=== PATIENT | female | born 1975 | race American Indian/Alaskan Native ===

== ENCOUNTER 2016-11-10 16:30 | Emergency (ER) | payer SELFPAY ==
[2016-11-10 17:29] LABS: Hematocrit 27.3 % (30.3-42.9); Hemoglobin 9.3 gm/dl (10.1-14.3); Mean Corpuscular HGB Conc 34 % (30-34); Mean Corpuscular Hemoglobin 35 pg (28-32); Mean Corpuscular Volume 103 fl (79-97); Platelet Count 327 K/mm3 (140-440); Red Blood Count 2.64 M/mm3 (3.65-5.03); Red Cell Distribution Width 12.3 % (13.2-15.2); White Blood Count 8.6 K/mm3 (4.5-11.0)
--- NOTE | 2016-11-10 17:33 | Cat Scan Report ---
FINAL REPORT PROCEDURE: CT HEAD/BRAIN WO CON TECHNIQUE: Computerized tomography of the head was performed without contrast material. HISTORY: headache COMPARISON: No prior studies are available for comparison. FINDINGS: No CT evidence of intracranial mass, hemorrhage, acute territorial infarction, or hydrocephalus. The intracranial arteries are symmetric in density. Calvarium is intact. The visualized paranasal sinuses and mastoids are aerated. IMPRESSION: No CT evidence of acute abnormality
[2016-11-10 17:40] LABS: Anion Gap 18 mmol/L; BUN/Creatinine Ratio 13.75; Blood Urea Nitrogen 11 mg/dL (7-17); Calcium 8.6 mg/dL (8.4-10.2); Carbon Dioxide 22 mmol/L (22-30); Chloride 106.6 mmol/L (98-107); Glucose 102 mg/dL (65-100); Potassium 3.5 mmol/L (3.6-5.0); Sodium 143 mmol/L (137-145)
[2016-11-10] MEDS ORDERED: TYLENOL PO ONE (21:13)
[2016-11-11] MEDS ORDERED: TORADOL IV ONE (01:39)
[2016-11-11] MEDS ORDERED: DILAUDID IV ONE ×3 (01:39→03:25)
[2016-11-11] MEDS ORDERED: ZOFRAN IV ONE (01:39)
[2016-11-11] MEDS ORDERED: ATIVAN ONE (02:46)
[2016-11-11] MEDS ORDERED: ATIVAN IV ONE (02:46)
[2016-11-11] MEDS ORDERED: XYLOCAINE 2% INFILTRATI ONE ×2 (03:03)
--- NOTE | 2016-11-11 03:52 | Emergency Department Report ---
ED Headache HPI - General Chief Complaint: Headache Stated Complaint: SEVERE MIGRAINE Time Seen by Provider: 11/11/16 00:56 Source: patient Exam Limitations: no limitations - History of Present Illness Initial Comments: 41-year-old female with a past medical history of previous TIA a presents to the hospital complaining of headache the past 3 days. Headache came on all of a sudden 8/10 in intensity. It improved temporarily with Tylenol No. 3 then pain comes back. Headache is now constant. Pain described as throbbing, posterior, and neck pain radiating down to mid thoracic spine. Pain worse with movement and palpation. No alleviating factors. Patient also complains of pressure behind her eyes. She denies nausea, vomiting, focal weakness, or numbness. History TIA in the past with right-sided weakness with full recovery. Patient had a spontaneous miscarriage on the at approximately 7- 8 weeks gestation. Denies previous hx of headaches. Allergies/Adverse Reactions: Allergies No Known Allergies Allergy (Unverified 11/10/16 17:04) Home Medications: Ambulatory Orders Ibuprofen [Motrin] 800 mg PO Q8HR PRN #30 tablet 11/11/16 Ondansetron [Zofran Odt] 4 mg PO Q8HR PRN #20 tab.rapdis 11/11/16 Oxycodone HCl/Acetaminophen [Percocet 7.5/325 mg] 1 each PO Q6HR PRN #20 tablet 11/11/16 ED Review of Systems ROS: Stated complaint: SEVERE MIGRAINE Other details as noted in HPI Comment: All other systems reviewed and negative Other: Constitutional: No fevers chills Eyes: No eye pain visual changes ENT: No ear pain or throat pain Neck: as per hpi Respiratory: Denies cough wheezing shortness of breath Cardiovascular: Denies chest pain, palpitations, syncope GI: Denies abdominal pain, nausea, vomiting, diarrhea : Denies dysuria Musculoskeletal: Denies back pain, joint swelling Skin: Denies rash, lesions, erythema Neurologic: as per hpi Psychiatric: Denies suicidal ideation, hallucinations ED Past Medical Hx - Past Medical History Additional medical history: TIA - Surgical History Past Surgical History?: Yes Additional Surgical History: fibroid tumors in uterus - Social History Smoking Status: Current Every Day Smoker Substance Use Type: Marijuana - Medications Home Medications: Home Medications Medication Instructions Recorded Confirmed Last Taken Type Ibuprofen [Motrin] 800 mg PO Q8HR PRN #30 tablet 11/11/16 Unknown Rx Ondansetron [Zofran Odt] 4 mg PO Q8HR PRN #20 tab.rapdis 11/11/16 Unknown Rx Oxycodone HCl/Acetaminophen 1 each PO Q6HR PRN #20 tablet 11/11/16 Unknown Rx [Percocet 7.5/325 mg] ED Physical Exam - General Limitations: No Limitations - Other Other exam information: General: No limitations, patient is alert in no acute distress Head exam: Atraumatic, normocephalic Eyes exam: Normal appearance ENT: Moist mucous membrane, normal oropharynx Neck exam: Normal inspection, full range of motion Respiratory exam: Clear to auscultation bilateral Cardiovascular: Normal rate and rhythm, normal heart sounds Abdomen: Soft, nondistended, and nontender Extremity: Full range of motion normal inspection no deformity Back: Normal Inspection, full range of motion, no tenderness Neurologic: Alert, oriented x3, cranial nerves intact, no motor or sensory deficit Psychiatric: normal affect, normal mood Skin: Warm, dry, intact ED Course Vital Signs 11/10/16 11/11/16 11/11/16 16:58 02:17 02:18 Temperature 98.7 F Pulse Rate 80 Respiratory 18 20 20 Rate Blood Pressure 114/81 O2 Sat by Pulse 100 Oximetry 11/11/16 11/11/16 11/11/16 02:47 02:48 03:56 Temperature Pulse Rate Respiratory 20 20 20 Rate Blood Pressure O2 Sat by Pulse Oximetry - Reevaluation(s) Reevaluation #1: 11/11/16 05:50 Patient headache improved with multiple doses of Dilaudid, Zofran, and Ativan. - Consultations Consultation #1: 11/11/16 05:03 Case was discussed with Dr. Adler on-call neurologist. She agrees that CSF results is not suggestive of acute infection or subarachnoid hemorrhage. - Lumbar Puncture Consent Obtained: written consent Time Out Performed: Yes Indication for Procedure: headache, R/O SA bleed Patient Position: Sitting Upright/Leaning F Skin Prep: Povidone-Iodine 1% Local Anesthetic Used: Lidocaine 1% Amount of anesthesia used (mls): 4 Spinal Needle Gauge: 22G Spinal Needle Length: 3.5in Interspace Used: L3-L4 Fluid Initially Obtained: clear Complications: none Patient Tolerated Procedure: well Additional Comments: Procedure time approximately 15 minutes ED Medical Decision Making - Lab Data Result diagrams: 11/10/16 17:10 11/10/16 17:10 Lab Results 11/10/16 11/10/16 11/10/16 Range/Units 17:10 17:10 17:10 WBC 8.6 (4.5-11.0) K/mm3 RBC 2.64 L (3.65-5.03) M/mm3 Hgb 9.3 L (10.1-14.3) gm/dl Hct 27.3 L (30.3-42.9) % MCV 103 H (79-97) fl MCH 35 H (28-32) pg MCHC 34 (30-34) % RDW 12.3 L (13.2-15.2) % Plt Count 327 (140-440) K/mm3 Sodium 143 (137-145) mmol/L Potassium 3.5 L (3.6-5.0) mmol/L Chloride 106.6 (98-107) mmol/L Carbon Dioxide 22 (22-30) mmol/L Anion Gap 18 mmol/L BUN 11 (7-17) mg/dL Creatinine 0.8 (0.7-1.2) mg/dL Estimated GFR > 60 ml/min BUN/Creatinine Ratio 13.75 % Glucose 102 H (65-100) mg/dL Calcium 8.6 (8.4-10.2) mg/dL CSF Appearance CSF Color CSF WBC (1-10) /mm3 CSF RBC (0-0) /mm3 CSF Seg Neutrophils (0-6) % CSF Lymphocytes % (40-80) % CSF Reactive Lymphs % CSF Monocytes % (15-45) % CSF Eosinophils % % CSF Basophils % CSF Comment CSF Pathologist Review CSF Glucose mg/dL CSF Total Protein mg/dL Blood Type O POSITIVE Ord Rhogam Gestat Weeks Rh pos WEEKS 11/11/16 11/11/16 Range/Units 03:25 03:25 WBC (4.5-11.0) K/mm3 RBC (3.65-5.03) M/mm3 Hgb (10.1-14.3) gm/dl Hct (30.3-42.9) % MCV (79-97) fl MCH (28-32) pg MCHC (30-34) % RDW (13.2-15.2) % Plt Count (140-440) K/mm3 Sodium (137-145) mmol/L Potassium (3.6-5.0) mmol/L Chloride (98-107) mmol/L Carbon Dioxide (22-30) mmol/L Anion Gap mmol/L BUN (7-17) mg/dL Creatinine (0.7-1.2) mg/dL Estimated GFR ml/min BUN/Creatinine Ratio % Glucose (65-100) mg/dL Calcium (8.4-10.2) mg/dL CSF Appearance Clear Clear CSF Color Colorless Colorless CSF WBC 1 2 (1-10) /mm3 CSF RBC 10 8 (0-0) /mm3 CSF Seg Neutrophils 0 11.1 (0-6) % CSF Lymphocytes % 100.0 88.9 (40-80) % CSF Reactive Lymphs 0 0 % CSF Monocytes % 0 0 (15-45) % CSF Eosinophils % 0 0 % CSF Basophils 0 0 % CSF Comment Less than 10 Less than 10 CSF Pathologist Review C C CSF Glucose 66 mg/dL CSF Total Protein 23 mg/dL Blood Type Ord Rhogam Gestat Weeks WEEKS - Radiology Data Radiology results: report reviewed (ct head: naf) - Medical Decision Making Patient given by mouth potassium for mild hypokalemia. CT unremarkable. LP not suggestive of SAH or infection. Patient was discharged with medication for tension headache - Differential Diagnosis sah, ich, mass, tension spears Critical Care Time: No Critical care attestation.: If time is entered above; I have spent that time in minutes in the direct care of this critically ill patient, excluding procedure time. ED Disposition Clinical Impression: Tension headache, Anemia Disposition: DC-01 TO HOME OR SELFCARE Is pt being admited?: No Condition: Stable Instructions: Tension Headache (ED), Anemia (ED) Additional Instructions: Take medication as needed. Return if symptoms worsen. Follow-up with your doctor/doctor or clinic provided and/or neurologist for further treatment Prescriptions: Ibuprofen [Motrin] 800 mg PO Q8HR PRN #30 tablet PRN Reason: Pain Ondansetron [Zofran Odt] 4 mg PO Q8HR PRN #20 tab.rapdis PRN Reason: Nausea And Vomiting Oxycodone HCl/Acetaminophen [Percocet 7.5/325 mg] 1 each PO Q6HR PRN #20 tablet PRN Reason: Pain Referrals: GAYLE GHOSH MD [Staff Physician] - 2-3 Days (Primary care doctor) MARGARETH GALDAMEZ MD [Staff Physician] - 3-5 Days (Neurologist) [facility] [Provider Group] - 2-3 Days (Primary care clinic) Time of Disposition: 05:53
[2016-11-11 04:08] LABS: Glucose,CSF 66 mg/dL
[2016-11-11 04:24] LABS: Appearance,CSF Clear; White Blood Cell,CSF 1 /mm3 (1-10)
[2016-11-11 04:37] LABS: Appearance,CSF Clear; White Blood Cell,CSF 2 /mm3 (1-10)
[2016-11-11 04:58] LABS: Basophils CSF 0 %; CSF Diff Status Complete
[2016-11-11 05:04] LABS: CSF Diff Status Complete
[2016-11-11 05:05] LABS: Basophils CSF 0 %
[2016-11-11] MEDS ORDERED: K-DUR PO ONE (05:49)
[2016-11-11 07:04] VITALS: BP 101/62
== END 2016-11-11 06:59 | disposition home or self-care (01) ==
LOC: ED 16:30
DX: G44.209 Tension-type headache, unspecified, not intractable (principal); D64.9 Anemia, unspecified; D25.9 Leiomyoma of uterus, unspecified; F17.200 Nicotine dependence, unspecified, uncomplicated; F12.10 Cannabis abuse, uncomplicated; Z86.73 Personal history of transient ischemic attack (TIA), and cerebral infarction without residual deficits
CPT/HCPCS: 36415; 62270; 70450; 80048; 82947; 84160; 85027; 86900; 86901; 87116; 89051; 96374; 96375; 99284; J1170; J1885; J2060; J2405